=== PATIENT | female | born 1965 | race Caucasian/White ===

== ENCOUNTER 2017-05-20 17:56 | Emergency (ER) | payer BC, OTHER ==
[~2017-05-20] VITALS: Ht 162.6 cm; Wt 70.3 kg
--- NOTE | ~2017-05-20 | EKG ---
[address] [address] ELECTROCARDIOGRAM REPORT Name: TIARRA MILES Room #: DEP [facility]ITAL[facility] [id number] Admission: 05/20/17 Attend Phys: Discharge: 05/20/17 Date of : 65 Report #: [id number] THIS REPORT FOR: //name// [facility] ED Test Date: 2017-05-20 Test Time: 18:12:31 Pat Name: TIARRA MILES Department: Room: Gender: F Education And Training Coordinator: MZOOK : 1965 Requested By: Denice Estrada Order Number: [id number] MD: Sj Briceño Measurements Intervals [place] Rate: 62 P: 53 IL: 147 QRS: 67 QRSD: 99 T: 65 QT: 392 QTc: 398 Interpretive Statements Sinus rhythm No significant abnormality No previous ECG available for comparison Electronically Signed On 05-22-2017 15:22:13 [employer] OPERATOR by Sj Briceño [email or web address] <ELECTRONICALLY SIGNED> By: Sj Briceño MD, [facility] 05/22/17 1522 181 181 Sj Briceño MD, FACC /EPI
[2017-05-20 18:59] LABS: ABSOLUTE NEUTROPHILS 2.8 thou/uL (1.4-8.2); EOSINOPHILS 7.5 % (0.0-3.0); HEMATOCRIT 35.8 % (37.0-47.0); HEMOGLOBIN 12.4 gm/dL (12.0-15.0); LYMPHOCYTES 31.4 % (24.0-44.0); MCH 30.3 pg (26.0-34.0); MCHC 34.7 g/dL (28.0-37.0); MCV 87.3 fL (80.0-100.0); MONOCYTES 7.6 % (1.0-8.0); PLATELET COUNT 234 thou/uL (150-400); POLYS 52.5 % (36.0-66.0); RDW 13.1 % (10.5-14.5); WBC 5.3 thou/uL (4.0-11.0)
[2017-05-20 19:15] LABS: ANION GAP 5 mmol/L (7-16); BUN 20 mg/dL (7-18); CALCIUM 9.3 mg/dL (8.5-10.1); CHLORIDE 107 mmol/L (98-107); CO2 29 mmol/L (21-32); CREATININE 0.7 mg/dL (0.6-1.0); GLUCOSE 103 mg/dL (74-106); POTASSIUM 3.8 mmol/L (3.5-5.1); SODIUM 141 mmol/L (136-145)
[2017-05-20 19:20] LABS: ALBUMIN 3.9 g/dL (3.4-5.0); DIRECT BILIRUBIN < 0.1 mg/dL (<0.1-0.3); SGOT 15 U/L (15-37); SGPT 22 U/L (30-65); TOTAL BILIRUBIN 0.3 mg/dL (<0.1-1.0); TOTAL PROTEIN 6.6 g/dL (6.4-8.2); TROPONIN-I < 0.04 ng/mL (<0.06)
== END 2017-05-20 20:00 | disposition home or self-care (01) ==
LOC: ER 17:56
PROVIDERS: Emergency Medicine
DX: M79.602 Pain in left arm (principal); R07.9 Chest pain, unspecified; R11.0 Nausea

== ENCOUNTER 2021-02-22 19:23 | Emergency (ER) | payer BC ==
[~2021-02-22] VITALS: Ht 160 cm; Wt 79.4 kg
[2021-02-22] MEDS ORDERED: EZALLOR SPRINKLE5 MG PO (19:40)
[2021-02-22] MEDS ORDERED: MONTELUKAST SODI4 M1 PO (19:40)
[2021-02-22] MEDS ORDERED: CELEBREX50 MG PO (19:41)
[2021-02-22 21:02] LABS: ABSOLUTE NEUTROPHILS 3.1 thou/uL (1.4-8.2); BASOPHILS 0.9 % (0.0-2.0); HEMATOCRIT 38.4 % (37.0-47.0); HEMOGLOBIN 12.8 gm/dL (12.0-15.0); LYMPHOCYTES 34.4 % (24.0-44.0); MCH 29.5 pg (26.0-34.0); MCHC 33.3 g/dL (28.0-37.0); MCV 88.8 fL (80.0-100.0); MONOCYTES 10.6 % (1.0-8.0); PLATELET COUNT 271 thou/uL (150-400); POLYS 47.1 % (36.0-66.0); RBC 4.32 mil/uL (4.20-5.00); RDW 13.4 % (10.5-14.5); WBC 6.6 thou/uL (4.0-11.0)
[2021-02-22 21:09] LABS: CALCIUM 9.4 mg/dL (8.5-10.1); CREATININE 0.8 mg/dL (0.6-1.0)
[2021-02-22] MEDS ORDERED: FLEXERIL PO (21:39)
[2021-02-22 22:11] VITALS: BP 131/709
== END 2021-02-22 22:07 | disposition home or self-care (01) ==
LOC: ER 19:23
PROVIDERS: Student in an Organized Health Care Education/Training Program
DX: M62.838 Other muscle spasm (principal); Z79.899 Other long term (current) drug therapy